=== PATIENT | female | born 1965 | race Caucasian/White ===

== ENCOUNTER 2016-10-26 10:02 | Emergency (ER) | payer OTHER ==
[~2016-10-26] VITALS: Ht 165.1 cm; Wt 64.3 kg
[~2016-10-26 10:02] MED LIST: ABILIFY2 MG PO; AMBIEN CR12.5 MG PO; AMBIEN10 M1 PO; ATIVAN1 M1 PO; Ativan PO; MAXALT10 MG PO; MAXALT5 MG; PRISTIQ50 MG; PRISTIQ50 MG PO; ZANAFLEX2 M1; ZANAFLEX2 MG PO
[2016-10-26 10:31] LABS: HEMATOCRIT 48.4 % (36.0-46.0); MCH 30.4 PG (29.0-34.0); MCHC 34.7 G/DL (30.0-36.0); MCV 87.5 FL (83-99); PLATELET COUNT 324 K/uL (156-360); RBC DIS.WIDTH-CV 12.7 % (11.8-14.6); RBC DIS.WIDTH-SD 40.3 % (39-53); RED BLOOD COUNT 5.53 M/uL (3.80-5.20); WHITE BLOOD COUNT 9.7 K/uL (4.1-10.2)
[2016-10-26 10:40] LABS: CHLORIDE 102 mEq/L (99-109); POTASSIUM 4.4 mEq/L (3.7-5.4); SODIUM 139 mEq/L (136-147)
[2016-10-26 10:42] LABS: GLUCOSE 109 mg/dL (70-99)
[2016-10-26 10:43] LABS: ANION GAP 9 MEQ/L (2-14)
[2016-10-26 10:46] LABS: GFR ESTIMATE (CALCULATED) > 59 mL/min/
[2016-10-26 10:47] LABS: UREA NITROGEN (BUN) 18 mg/dL (9-23)
[2016-10-26 11:36] LABS: ADD MIUA? YES; BILIRUBIN NEGATIVE; BLOOD LARGE; COLOR YELLOW ((YELLOW)); GLUCOSE (STRIP) NEGATIVE; KETONES NEGATIVE; LEUKOCYTES SMALL; NITRITE NEGATIVE; PH, URINE 7.5 (5-8); PROTEIN (STRIP) NEGATIVE; SPECIFIC GRAVITY 1.014 (1.000-1.030); UROBILINOGEN 0.2 MG/DL (0.2-1.0)
[2016-10-26 12:07] LABS: BACTERIA RARE; CASTS NONE SEEN /LPF; CRYSTALS NONE SEEN; EPITHELIAL CELLS RARE; MUCUS NONE SEEN; UCUL ADDED? NO
[2016-10-26 12:26] LABS: TOTAL BILIRUBIN 0.6 mg/dL (0.0-1.0)
[2016-10-26 12:27] LABS: ALKALINE PHOSPHATASE 110 IU/L (3-129)
[2016-10-26 12:29] LABS: DIRECT BILIRUBIN 0.2 mg/dL (0.0-0.3)
[2016-10-26 12:30] LABS: LIPASE 32 U/L (1.0-51.0)
[2016-10-26] MEDS ORDERED: ZOFRAN ODT4 MG PO (12:54)
[2016-10-26 13:07] VITALS: BP 130/71
== END 2016-10-26 13:14 | disposition home or self-care (01) ==
LOC: EME 10:02
DX: R11.2 Nausea with vomiting, unspecified (principal); R19.7 Diarrhea, unspecified; R31.9 Hematuria, unspecified; Z88.6 Allergy status to analgesic agent; Z88.0 Allergy status to penicillin
CPT/HCPCS: 80048; 80076; 81003; 83690; 85027; 99281; 99285; J7030